=== PATIENT | female | born 1945 | race Caucasian/White ===

== ENCOUNTER 2023-10-31 20:58 | Emergency (ER) | payer MEDICARE, OTHER | END 2023-10-31 22:28 | LOC: FB.ED 20:58 | DX: T18.108A Unspecified foreign body in esophagus causing other injury, initial encounter (principal); Z79.899 Other long term (current) drug therapy; W44.9XXA Unspecified foreign body entering into or through a natural orifice, initial encounter | CPT/HCPCS: 99284 ==